=== PATIENT | male | born 1990 | race Two or more races ===

== ENCOUNTER 2019-10-08 07:06 | Emergency (ER) | payer SELFPAY ==
[~2019-10-08] VITALS: Ht 175.3 cm; Wt 77.2 kg
[2019-10-08 07:10] VITALS: BP 127/89
[2019-10-08] MEDS: LIDOCAINE 1% PF 5 ML VIAL. INJ ONE (08:06)
[2019-10-08] MEDS: TETANUS AND DIPHTHERIA TOX/PF 0.5 ML DISP.SYRIN. VAX IM ONE (08:08)
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
== END 2019-10-08 08:30 | disposition home or self-care (01) ==
LOC: ER 07:06
DX: S61.412A Laceration without foreign body of left hand, initial encounter (principal); F17.200 Nicotine dependence, unspecified, uncomplicated; W26.0XXA Contact with knife, initial encounter; Y93.89 Activity, other specified; Y92.89 Other specified places as the place of occurrence of the external cause; Y99.8 Other external cause status
CPT/HCPCS: 12002; 90471; 90714; 99283; J3490

== ENCOUNTER 2019-10-17 19:58 | Emergency (ER) | payer SELFPAY ==
[~2019-10-17] VITALS: Ht 175.3 cm; Wt 70.0 kg
[2019-10-17 20:00] VITALS: BP 135/86
--- NOTE | 2019-10-17 20:14 | PHYS DOC ---
Past Medical History Past Medical History: No Pertinent History Past Surgical History: No Surgical History Smoking Status: Current Some Day Smoker Alcohol Use: None General Adult EDM: Chief Complaint: SUTURE/STAPLE REMOVAL HPI: HPI: Patient is a 29 year old male who presents with suture removal on right palm of hand. Review of Systems: Review of Systems: Integument: Denies rash. Right hand sutures in place. [] Heart Score: Risk Factors: Risk Factors: DM, Current or recent (<one month) smoker, HTN, HLP, family history of CAD, obesity. Risk Scores: Score 0 - 3: 2.5% MACE over next 6 weeks - Discharge Home Score 4 - 6: 20.3% MACE over next 6 weeks - Admit for Clinical Observation Score 7 - 10: 72.7% MACE over next 6 weeks - Early Invasive Strategies Allergies: Allergies: Allergies Coded Allergies Type Severity Reaction Last Updated Verified No Known Drug Allergies 10/08/19 No Physical Exam: PE: Constitutional: Well developed, well nourished, no acute distress, non-toxic appearance. [] HENT: Normocephalic, atraumatic, bilateral external ears normal, oropharynx moist, no oral exudates, nose normal. [] Eyes: PERRLA, EOMI, conjunctiva normal, no discharge. [] Neck: Normal range of motion, no tenderness, supple, no stridor. [] Cardiovascular:Heart rate regular rhythm, no murmur [] Lungs & Thorax: Bilateral breath sounds clear to auscultation [] Abdomen: Bowel sounds normal, soft, no tenderness, no masses, no pulsatile masses. [] Skin: Warm, dry, no erythema, no rash. Sutures in place. [] Back: No tenderness, no CVA tenderness. [] Extremities: No tenderness, no cyanosis, no clubbing, ROM intact, no edema. [] Neurologic: Alert and oriented X 3, normal motor function, normal sensory function, no focal deficits noted. [] Psychologic: Affect normal, judgement normal, mood normal. [] EKG: EKG: [] Radiology/Procedures: Radiology/Procedures: [] Course & Med Decision Making: Course & Med Decision Making Pertinent Labs and Imaging studies reviewed. (See chart for details) Laceration was on October 07. Patient has 3 sutures to the right palm of hand. There are no signs of infection. No redness or swelling. Patient has full function of the hand denies any numbness or tingling or any pain. Can make a full fist. Skin pink warm and dry. Radial pulse strong present. Cap refill less than 3 seconds. Edges are approximated and there is no drainage. Dragon Disclaimer: Dragon Disclaimer: This electronic medical record was generated, in whole or in part, using a voice recognition dictation system. Departure Departure Impression: Primary Impression: Visit for suture removal Disposition: HOME, SELF-CARE Condition: STABLE Referrals: NO PCP (PCP) Patient Instructions: Suture Removal-Brief Additional Instructions: Follow up with primary care provider if needed. Use antibiotic ointment on the area if you would like. ELIZABETH AREVALO [employer] October 17, 2019 20:14
== END 2019-10-17 20:16 | disposition home or self-care (01) ==
LOC: ER 19:58
DX: S61.412D Laceration without foreign body of left hand, subsequent encounter (principal); F17.200 Nicotine dependence, unspecified, uncomplicated; W26.0XXD Contact with knife, subsequent encounter
CPT/HCPCS: 99281